=== PATIENT | male | born 1990 | race Caucasian/White ===

== ENCOUNTER 2018-02-21 09:49 | Emergency (ER) | payer BC, OTHER ==
--- NOTE | 2018-02-21 10:21 | EDM.PDOC ---
ED HPI GENERAL MEDICAL PROBLEM - General Chief Complaint: Lower Extremity Injury/Pain Stated Complaint: LEG GAVE OUT Time Seen by Provider: 02/21/18 10:05 Source of Information: Reports: Patient History Limitations: Reports: No Limitations - History of Present Illness INITIAL COMMENTS - FREE TEXT/NARRATIVE: 27-year-old male was at work pushing hard with his right leg trying to move something when it "gave out". It's obviously deformed and is unable to bear weight or move the leg. No other injury. Onset: Sudden Duration: Hour(s): (Within the last hour) Location: Reports: Lower Extremity, Right Severity: Moderate Associated Symptoms: Reports: No Other Symptoms Right Knee Pain Score (Numeric/FACES): 7 - Related Data Allergies Allergy/AdvReac Type Severity Reaction Status Date / Time No Known Allergies Allergy Verified 02/21/18 10:21 Home Meds: Home Meds Sertraline [Zoloft] 100 mg PO DAILY 02/21/18 [History] Social & Family History - Tobacco Use Smoking Status *Q: Current Every Day Smoker Years of Tobacco use: 3 Packs/Tins Daily: 1 - Caffeine Use Caffeine Use: Reports: Soda - Recreational Drug Use Recreational Drug Use: Yes Drug Use in Last 12 Months: Yes Recreational Drug Type: Reports: Marijuana/Hashish Recreational Drug Use Frequency: Weekly Review of Systems - Review of Systems Review Of Systems: See Below Respiratory: Denies: Shortness of Breath Cardiovascular: Denies: Chest Pain GI/Abdominal: Denies: Nausea, Vomiting Skin: Reports: Pallor, Diaphoresis Psychiatric: Reports: Anxiety (Extremely anxious and uncomfortable) ED EXAM, GENERAL - Physical Exam Exam: See Below Exam Limited By: No Limitations General Appearance: Alert, Anxious, Mild Distress Respiratory/Chest: No Respiratory Distress Extremities: Other (Patient has an obvious deformity with a lateral dislocation of the patella of the right lower extremity) Neurological: Alert, Oriented Psychiatric: Anxious Skin Exam: Pallor Course - Vital Signs Last Recorded V/S: Last Vital Signs Temp 94.9 F L 02/21/18 10:06 Pulse 94 02/21/18 10:06 Resp 18 02/21/18 10:06 BP 122/70 02/21/18 10:06 Pulse Ox 100 02/21/18 10:06 - Re-Assessments/Exams Free Text/Narrative Re-Assessment/Exam: 02/21/18 10:18 Simple countertraction was applied to the patella and it reduced easily. His symptoms instantly markedly improved. Within 10 minutes his color improved and his anxiety resolved. A right knee postreduction x-ray was obtained which was unremarkable. After consultation with orthopedics, a neoprene patellar stabilizer was recommended along with icing and elevation for the rest of today. Anti-inflammatories and increase activity as tolerated, no follow-up needed unless this is a recurring problem. Departure - Departure Time of Disposition: 10:30 Disposition: Home, Self-Care 01 Condition: Good Clinical Impression: Dislocation of right patella Qualifiers: Encounter type: initial encounter Qualified Code(s): S83.004A - Unspecified dislocation of right patella, initial encounter - Discharge Information Instructions: Patellar Dislocation, [id number] Referrals: PCP,None [Primary Care Provider] - Forms: ED Department Discharge Care Plan Goals: Where stabilizing neoprene sleeve on the right leg for the next several weeks. Elevate leg with ice to the knee for the rest of today, ibuprofen or naproxen should help. Tomorrow resume activity as tolerated. Recheck with Dr. Enrique Barragan, orthopedics at the hospital in the next several weeks if you do not feel like you are healing satisfactorily.
--- NOTE | 2018-02-21 10:22 | CR ---
Knee 1V or 2V Rt INDICATION: post reduction lateral dislocation patella FINDINGS: AP and lateral views of the right knee. No acute fracture. Small knee effusion or synovitis . Right knee otherwise negative.
== END 2018-02-21 10:31 | disposition home or self-care (01) ==
LOC: JP.ED 09:49
DX: S83.004A Unspecified dislocation of right patella, initial encounter (principal); F17.210 Nicotine dependence, cigarettes, uncomplicated; X50.9XXA Other and unspecified overexertion or strenuous movements or postures, initial encounter
CPT/HCPCS: 73560-26-RT; 73560-RT; 99284-25